=== PATIENT | female | born 1950 | race Caucasian/White ===

== ENCOUNTER 2025-11-19 14:23 | Outpatient (CLI) | payer MEDICARE ==
--- NOTE | 2025-11-19 21:12 | RADIOLOGY REPORT ---
EXAM: MR MRI LOWER EXTREMITY RIGHT HISTORY: VALGUS DEFORMITY, NOT ELSEWHERE CLASSIFIED, RIGHT KNEE COMPARISON: None TECHNIQUE: Multiplanar, multisequence imaging of the right knee was performed without contrast FINDINGS: MEDIAL COMPARTMENT: Intact medial meniscus. LATERAL COMPARTMENT: Intact lateral meniscus. 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 CRUCIATE LIGAMENTS: Intact anterior and posterior cruciate ligaments. MEDIAL SUPPORTING STRUCTURES: Intact medial collateral ligament. LATERAL SUPPORTING STRUCTURES: Intact iliotibial band. Intact lateral capsular ligament. Intact fibular collateral ligament. Intact popliteus tendon. Intact biceps femoris tendon. EXTENSOR MECHANISM: Intact JOINT SPACE/FLUID: Trace amount of edema of the suprapatellar fat pad extending medially. BONES: No acute fracture, osseous contusion, or aggressive focal osseous lesion MUSCLES: Normal in signal intensity and morphology NEUROVASCULAR: Unremarkable OTHER: None IMPRESSION: 1. Trace amount of edema of the suprapatellar fat pad extending medially. 2. 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
== END 2025-11-19 23:59 | disposition home or self-care (01) ==
LOC: MRI02 14:23
PROVIDERS: ATTEND Family Medicine Sports Medicine
DX: M17.11 Unilateral primary osteoarthritis, right knee (principal); M77.9 Enthesopathy, unspecified; M70.61 Trochanteric bursitis, right hip; M25.551 Pain in right hip; M21.061 Valgus deformity, not elsewhere classified, right knee
CPT/HCPCS: 73721